=== PATIENT | male | born 1985 ===

== ENCOUNTER 2018-09-23 06:07 | Day surgery (SDC) | payer OTHER | END 2018-09-23 12:25 | disposition home or self-care (01) | LOC: CIR.AMB 06:07 | DX: D21.0 Benign neoplasm of connective and other soft tissue of head, face and neck (principal) ==

== ENCOUNTER 2019-02-23 12:08 | Emergency (ER) | payer OTHER ==
[~2019-02-23] VITALS: Ht 177.8 cm; Wt 102.1 kg
[2019-02-23] MEDS ORDERED: ULTRACET PO (14:29)
== END 2019-02-23 14:49 | disposition home or self-care (01) ==
LOC: ER 12:08
DX: S30.0XXA Contusion of lower back and pelvis, initial encounter (principal); W18.39XA Other fall on same level, initial encounter; Y93.89 Activity, other specified; Y92.091 Bathroom in other non-institutional residence as the place of occurrence of the external cause; Y99.8 Other external cause status